=== PATIENT | male | born 1990 | race Caucasian/White ===

== ENCOUNTER 2022-01-08 00:30 | Emergency (ER) | payer OTHER ==
[2022-01-08 01:04] VITALS: BP 127/87; PULSE 80; TEMP 98.9; BMI 23.3
[2022-01-08 01:25] LABS: EPI CELLS 1 /uL (0-25.1); HYALINE CASTS 0 /uL (0-3.1); PH,URINE 6.5 (5.0-8.0); URINE APPEARANCE CLEAR; URINE BACTERIA 2 /uL (0-1359); URINE BILIRUBIN NEGATIVE (NEGATIVE); URINE COLOR YELLOW; URINE GLUCOSE (UA) NEGATIVE (NEGATIVE); URINE KETONE NEGATIVE (NEGATIVE); URINE LEUK ESTERASE NEGATIVE (NEGATIVE); URINE NITRITE NEGATIVE (NEGATIVE); URINE PROTEIN NEGATIVE (NEGATIVE); URINE RBC 33 /uL (0-23.9); URINE UROBILINOGEN 0.2 mg/dL (0.2-1.0); URINE WBC 1 /uL (0-25.8)
[2022-01-08] MEDS ORDERED: LIDOCAINE HCL 1%, 10 MG/ML (20ML VIAL) ONE (02:02)
[2022-01-08] MEDS ORDERED: cefTRIAXone SODIUM 1 GM VIAL ONE (02:02)
== END 2022-01-08 02:08 | disposition home or self-care (01) ==
LOC: JER 00:30
PROC: 3E023GC Introduction of Other Therapeutic Substance into Muscle, Percutaneous Approach (ICD-10-PCS; principal; 2022-01-08)
DX: N34.2 Other urethritis (principal)
CPT/HCPCS: 36415; 81003; 87086; 87491; 87591; 99284-25